=== PATIENT | male | born 1995 | race Hispanic/Latino ===

== ENCOUNTER 2018-05-06 19:59 | Emergency (ER) | payer OTHER ==
[2018-05-06] MEDS ORDERED: LIDOCAINE HCL 1% 20 ML VIAL ONE (20:48)
[2018-05-06] MEDS ORDERED: TETANUS/DIPHTHERIA TOXOID [ADULT] 0.5 ML VIAL IM ONE (21:31)
[2018-05-06] MEDS ORDERED: LIDOCAINE HCL-MPF 1% 2ML VIAL ONE (21:56)
[2018-05-06] MEDS ORDERED: CEFTRIAXONE SODIUM 1 GM ONE (21:56)
== END 2018-05-06 22:10 | disposition home or self-care (01) ==
LOC: EDH 19:59
DX: S60.456A Superficial foreign body of right little finger, initial encounter (principal); S70.351A Superficial foreign body, right thigh, initial encounter; W45.8XXA Other foreign body or object entering through skin, initial encounter; Y93.89 Activity, other specified; Y92.89 Other specified places as the place of occurrence of the external cause; Y99.8 Other external cause status
CPT/HCPCS: 10120; 73130; 73552; 90471; 90714; 96372; 99284; J0696; J3490